=== PATIENT | male | born 1995 | race Caucasian/White ===

== ENCOUNTER 2020-09-04 16:46 | Emergency (ER) | payer OTHER, SELFPAY ==
[2020-09-04 17:09] VITALS: BP 134/65; PULSE 75; RESP 16; TEMP 36.3; O2SAT 95; BMI 22.6
[2020-09-04] MEDS: ondansetron HCL 4 MG/2 ML VIAL IVPUSH (18:10)
[2020-09-04 20:00] VITALS: PULSE 15
--- NOTE | 2020-09-04 20:57 | ED_ITS ---
HPI - Overdose General Chief Complaint: Overdose Stated Complaint: od Time Seen by Provider: 09/04/20 17:44 Source: patient Mode of arrival: ambulatory Limitations: no limitations History of Present Illness HPI Narrative: Patient presents via EMS from home with complaint of accidental heroin overdose. Patient reports that he thought he was doing cocaine but accidentally did heroin which she predicts that the cocaine may have been laced. He denies any intentional plan to harm himself denies any suicidal homicidal ideation. He was given 4 mg of nasal Narcan as he was having minimal responsiveness. Upon arrival nontoxic appearing. He otherwise denies any other medical complaints. complaint: accidental overdose Timing confirmed by: family member Treatments Prior to Arrival: narcan Related Data Allergies Allergy/AdvReac Type Severity Reaction Status Date / Time No Known Allergies Allergy Unverified 07/13/20 16:27 Review of Systems Review of Systems: Constitutional: No Weight loss, No Fever, No Chills, No Night Sweats, No Fatigue, No Malaise ENT/Mouth: No Hearing loss, No Ear Pain, No Nasal Congestion, No Sinus Pain, No Hoarseness, No sore throat, No Rhinorrhea, No Swallowing Difficulty Eyes: No Eye Pain, No Swelling, No Redness, No Foreign Body, No Discharge, No Vision Changes Cardiovascular: No Chest Pain, No SOB, No Dyspnea on Exertion, No Orthopnea, No Edema, No Palpitations Respiratory: No Cough, No Sputum, No Wheezing, No Smoke Exposure, No Dyspnea Gastrointestinal: No Nausea, No Vomiting, No Diarrhea, No Constipation, No abdominal Pain, No Hematochezia, No Melena Genitourinary: no irregular bleeding, No Dysuria, No Urinary Frequency, No Hematuria, No Urinary Incontinence, No Urgency, No Flank Pain, No Urinary Flow Changes, No Hesitancy Musculoskeletal: No joint pain, No Myalgias, No Joint Swelling Skin: No Skin Lesions, No rash Neuro: No Weakness, No Numbness, No Paresthesias, No Loss of Consciousness, No Dizziness, No Headache Psych: No Anxiety/Panic, No Depression, No SI/HI/AH/VH, No Social Issues Heme/Lymph: No Bruising, No Bleeding,No Lymphadenopathy Endocrine: No Polyuria, No Polydipsia, No Temperature Intolerance Yes all other systems are reviewed and are negative [facility] Social History Social History Alcohol intake: unknown Smoking Status: Unknown if ever smoked Use of substances other than those prescribed or required for medical reasons: Yes Substance Use Type: Crack/Cocaine Advance Directives: No Advance Directives Information Provided: No Physical Exam Vital Signs: Vital Signs: Last Vital Signs Temp 97.4 F 09/04/20 17:09 Pulse 15 L 09/04/20 20:00 Resp 16 09/04/20 17:09 BP 134/65 09/04/20 17:09 Pulse Ox 95 09/04/20 17:09 Body Mass Index 22.6 Reviewed Const: General: cooperative and healthy appearing; No acute distress or intoxicated appearing Nutritional Appearance: average body habitus Orientation/consciousness: patient oriented x3 HENMT: Head: Yes normal to inspection Ears: hearing grossly normal bilaterally Eyes: General: appearance normal, both eyes and all related structures Visual Hutton: normal visual hutton by confrontation Neck: Neck: Yes normal visual inspection and No tender Thyroid: Thyroid normal Chest: Chest palpation & inspection: normal inspection of the chest Resp: Effort & Inspection: normal respiratory effort Cardio: Jugular venous distension: no JVD GI: Inspection: Yes normal to inspection Percussion: Yes normal to percussion Auscultation: normal bowel sounds : General: Yes no CVA tenderness Back/Spine/Pelvis: Back: no CVA tenderness Skin: General skin exam: no rashes or lesions noted Neuro: General: patient oriented x3 Extrem: General: Yes normal to inspection Course Course Course Narrative: Patient resting comfortably. Observe in the ED for multiple hours- has remained nontoxic. Detox services offered which he declined. Referred to his primary care doctor and Suboxone program. Denies any SI or HI. Stable for discharge. Discharge Plan Discharge Clinical Impression: Drug overdose Qualifiers: Encounter type: initial encounter Patient Disposition: Home, Self-Care Instructions: Polysubstance Abuse (ED), Adult Overdose (ED) Referrals: Physician,Unknown [Primary Care Provider] - 2 days (Primary care/detox center )
== END 2020-09-04 21:07 | disposition home or self-care (01) ==
PROVIDERS: Emergency Provider Emergency Medicine
DX: T40.1X1A Poisoning by heroin, accidental (unintentional), initial encounter (principal); F11.10 Opioid abuse, uncomplicated; F14.10 Cocaine abuse, uncomplicated; Y92.9 Unspecified place or not applicable; Z71.51 Drug abuse counseling and surveillance of drug abuser
CPT/HCPCS: 96374; 99284; 99285; J2405

== ENCOUNTER 2021-03-22 05:39 | Emergency (ER) | payer OTHER, SELFPAY ==
[2021-03-22 05:54] VITALS: BP 123/59; PULSE 65; RESP 16; TEMP 36.8; O2SAT 99; BMI 19.8
[2021-03-22] MEDS: 0.9 % Sodium Chloride 1,000 ML 999 ML IV (06:17)
[2021-03-22] MEDS: ondansetron HCL 4 MG/2 ML VIAL IVPUSH (06:17)
[2021-03-22 06:21] LABS: Basophils Absolute Auto 0.1 X10*3/uL (0.0-0.2); Basophils Percent Auto 0.2 % (0-2); Hematocrit 43.9 % (42-52); Imm Gran Abs Auto 0.41 X10*3/uL (0.00-0.03); Imm Gran Pct Auto 1.6 % (0.0-0.4); Lymphocytes Absolute Auto 1.4 X10*3/uL (1.2-4.9); Lymphocytes Percent Auto 5.3 % (20-40); MANUAL DIFF FLAG SCAN; Mean Corpuscular HGB Conc 34.2 g/dl (31.0-36.0); Mean Corpuscular Hemoglobin 30.3 pg (27.0-33.0); Mean Corpuscular Volume 88.7 fL (80-98); Mean Platelet Volume 8.8 fL (9.4-12.4); Monocytes Percent Auto 7.7 % (2-11); Neutrophils Absolute Auto 22.3 X10*3/uL (2.0-8.3); Neutrophils Percent Auto 85.2 % (45-73); Platelet Count 272 X10*3/uL (160-400); Red Blood Count 4.95 X10*6/uL (4.60-5.80); Red Cell Distribution Width 12.7 % (11.0-16.0); SCAN SMEAR FLAG 1; White Blood Count 26.1 X10*3/uL (4.8-10.8)
--- NOTE | 2021-03-22 06:32 | ED_ITS ---
HPI - Nausea/Vomiting/Diarrhea General Chief complaint: Nausea/Vomiting/Diarrhea Stated complaint: Vomiting Time Seen by Provider: 03/22/21 06:31 Source: patient Mode of arrival: ambulatory Limitations: no limitations History of Present Illness MD elicited complaint: nausea, vomiting and abdominal pain Pertinent past history: alcohol abuse Onset (ago): hour(s) (1am) Associated nausea: Yes Associated abdominal pain: No Location of pain: none Pain consistency: constant Severity: mild Exacerbating factors: none Relieving factors: none Context: alcohol abuse Associated symptoms: malaise, nausea/vomiting and anxiety Related Data Previous Rx's Medication Instructions Recorded famotidine [Pepcid] 20 mg PO DAILY PRN #30 tab 03/22/21 ondansetron 4 mg PO Q8H PRN #20 tab 03/22/21 Allergies Allergy/AdvReac Type Severity Reaction Status Date / Time No Known Allergies Allergy Verified 03/22/21 05:56 Review of Systems Review of Systems: Constitutional : No Weight loss, No Fever, No Chills ENT/Mouth : No sore throat, No Rhinorrhea Eyes: No Swelling, No Redness Cardiovascular : No Chest Pain, No SOB, NoEdema Respiratory : No Cough, No Sputum, No Wheezing Gastrointestinal : Positive Nausea, Positive Vomiting, no Diarrhea, no abdominal Pain, No Hematochezia, No Melena Genitourinary : No Dysuria, No Urinary Frequency, No Hematuria, No Urgency Musculoskeletal : No joint pain, No Myalgias, No Joint Swelling Skin : No Skin Lesions, No rash Neuro : No Weakness, No Numbness, No Dizziness, No Headache Psych : No Anxiety/Panic, No Depression Heme/Lymph: No Bruising, No Lymphadenopathy Endocrine : No Polyuria, No Polydipsia All other systems reviewed and are negative. Gastrointestinal: Gastrointestinal: Reports nausea PMFSH Past Medical History Attestation statement: The following information was validated with the patient. Medical History No known health problems Surgical History No pertinent past surgical history Social History Social History Alcohol intake: unknown Substance Use Type: Crack/Cocaine Advance Directives: No Advance Directives Information Provided: No Physical Exam Vital Signs: Vital Signs: Last Vital Signs Temp 98.2 F 03/22/21 05:54 Pulse 83 03/22/21 07:02 Resp 18 03/22/21 07:02 BP 126/71 03/22/21 07:02 Pulse Ox 100 03/22/21 07:02 Body Mass Index 19.8 Appearance: Alert. Oriented X3. No acute distress. Eyes: Pupils equal, round and reactive to light. ENT: Pharynx normal. Neck: Normal inspection. Neck supple. CVS: Normal heart rate and rhythm. Pulses normal. Respiratory: No respiratory distress. Breath sounds normal. Abdomen: Soft and nontender. Skin: Skin warm and dry. Normal skin color. Normal skin turgor. Extremities: No lower extremity edema. No calf ttp Neuro: Oriented X 3. No motor deficit. No sensory deficit. Course Course Course Narrative: WBC due to emesis has no abdominal pain on palpation tolerting PO feels much better MDM - Nausea/Vomiting/Diarrhea MDM Narrative Medical decision making narrative: 25 yo male with ETOH use last night c/o vomiting since 1am, given zofran prior to interview states his symptoms have resolved, labs, IVF, PO challenge, abdomen is soft and benign Lab Data Result diagrams: 03/22/21 06:15 03/22/21 06:40 Labs: Lab Results 03/22/21 03/22/21 Range/Units 06:15 06:40 WBC 26.1 H (4.8-10.8) X10*3/uL RBC 4.95 (4.60-5.80) X10*6/uL Hgb 15.0 (14.0-18.0) g/dl Hct 43.9 (42-52) % MCV 88.7 (80-98) fL MCH 30.3 (27.0-33.0) pg MCHC 34.2 (31.0-36.0) g/dl RDW 12.7 (11.0-16.0) % Plt Count 272 (160-400) X10*3/uL MPV 8.8 L (9.4-12.4) fL Immature Gran % (Auto) 1.6 H (0.0-0.4) % Neut % (Auto) 85.2 H (45-73) % Lymph % (Auto) 5.3 L (20-40) % [place] % (Auto) 7.7 (2-11) % Eos % (Auto) 0.0 (0-4) % Baso % (Auto) 0.2 (0-2) % Lymph # (Auto) 1.4 (1.2-4.9) X10*3/uL [place] # (Auto) 2.0 H (0.1-1.2) X10*3/uL Eos # (Auto) 0.0 (0.0-0.4) X10*3/uL Baso # (Auto) 0.1 (0.0-0.2) X10*3/uL Abs Immat Gran (auto) 0.41 H (0.00-0.03) X10*3/uL Absolute Neuts (auto) 22.3 H (2.0-8.3) X10*3/uL Absolute Nucleated RBC 0.000 (0.0-0.012) X10*3/uL Nucleated RBC % (auto) 0.0 (0.0-0.2) /100WBC Smear Tech's Comments VERIFIED Sodium 144 (135-145) mmol/L Potassium 3.8 (3.3-5.1) mmol/L Chloride 109 H (96-108) mmol/L Carbon Dioxide 19 L (22-29) mmol/L Anion Gap 20 (12-20) BUN 16 (9-16) mg/dL Creatinine 0.97 (0.5-1.4) mg/dL Estim Creat Clear Calc 110.0 Estimated GFR > 60 Random Glucose 74 (60-115) mg/dL Calcium 9.1 (8.4-10.2) mg/dL Total Bilirubin 0.9 (0.0-1.0) mg/dL Direct Bilirubin 0.4 (0.0-0.5) mg/dL AST 27 (5-37) U/L ALT 30 (0-40) U/L Alkaline Phosphatase 57 (39-117) U/L Total Protein 7.5 (6.5-8.0) g/dL Albumin 4.7 (3.5-5.0) g/dL Lipase 11 (8-78) U/L Discharge Plan Discharge Clinical Impression: Gastritis Qualifiers: Gastritis type: alcoholic Chronicity: acute Gastritis bleeding: without bleeding Qualified Code(s): K29.20 - Alcoholic gastritis without bleeding Vomiting Qualifiers: Vomiting type: unspecified Vomiting Intractability: non-intractable Nausea presence: with nausea Qualified Code(s): R11.2 - Nausea with vomiting, unspecified Patient Disposition: Home, Self-Care Instructions: Gastritis (ED), Acute Nausea and Vomiting (ED) Additional Instructions: return to ED for any worsening symptoms or concerns stop drinking alcohol Prescriptions: New famotidine [Pepcid] 20 mg tablet 20 mg PO DAILY PRN (Reason: abdominal discomfort) Qty: 30 RF: 0 ondansetron 4 mg tablet,disintegrating 4 mg PO Q8H PRN (Reason: nausea and vomiting) Qty: 20 RF: 0 Stand Alone Forms: Work/School Release
[2021-03-22 07:02] VITALS: BP 126/71; PULSE 83; RESP 18; O2SAT 100
[2021-03-22 07:04] LABS: SLIDE REVIEW VERIFIED
--- NOTE | 2021-03-22 07:10 | PC.NURSE ---
report received from Юлия AMBRIZ. vitals taken. pt resting in bed comfortably, drank small a small sip of water. waiting lab results and IV fluids to finish. no vomiting or abd. pain at this time
[2021-03-22 07:20] LABS: Alanine Aminotransferase 30 U/L (0-40); Albumin Level 4.7 g/dL (3.5-5.0); Alkaline Phosphatase 57 U/L (39-117); Anion Gap 20 (12-20); Aspartate Amino Transferase 27 U/L (5-37); Bilirubin Direct 0.4 mg/dL (0.0-0.5); Bilirubin Total 0.9 mg/dL (0.0-1.0); Blood Urea Nitrogen 16 mg/dL (9-16); Calcium 9.1 mg/dL (8.4-10.2); Carbon Dioxide 19 mmol/L (22-29); Chloride 109 mmol/L (96-108); Estimated Glomerular Filt Rate > 60; Glucose Random 74 mg/dL (60-115); Lipase 11 U/L (8-78); Potassium 3.8 mmol/L (3.3-5.1); Sodium 144 mmol/L (135-145); Total Protein 7.5 g/dL (6.5-8.0)
== END 2021-03-22 08:00 | disposition home or self-care (01) ==
PROVIDERS: Emergency Provider Emergency Medicine
DX: R11.2 Nausea with vomiting, unspecified (principal); R19.7 Diarrhea, unspecified; Z79.899 Other long term (current) drug therapy
CPT/HCPCS: 36415; 80048; 80076; 83690; 85025; 96365; 96375; 99284; J2405

== ENCOUNTER 2024-10-04 22:47 | Emergency (ER) | payer OTHER, SELFPAY ==
[2024-10-04 23:17] VITALS: BP 118/61; PULSE 97; RESP 16; TEMP 36.9; O2SAT 99; BMI 23.4
[2024-10-05 00:29] LABS: Basophils Percent Auto 0.3 % (0-2); Eosinophils Absolute Auto 0.2 X10*3/uL (0.0-0.4); Eosinophils Percent Auto 1.1 % (0-4); Hematocrit 44.1 % (42.0-52.0); Hemoglobin 14.7 g/dl (14.0-18.0); Imm Gran Abs Auto 0.17 X10*3/uL (0.00-0.03); Imm Gran Pct Auto 1.2 % (0.0-0.4); Lymphocytes Absolute Auto 0.4 X10*3/uL (1.2-4.9); Lymphocytes Percent Auto 2.8 % (20-40); MANUAL DIFF FLAG SCAN; Mean Corpuscular HGB Conc 33.3 g/dl (31.0-36.0); Mean Corpuscular Hemoglobin 29.7 pg (27.0-33.0); Mean Corpuscular Volume 89.1 fL (80.0-98.0); Mean Platelet Volume 8.6 fL (9.4-12.4); Monocytes Absolute Auto 1.6 X10*3/uL (0.1-1.2); Monocytes Percent Auto 11.3 % (2-11); Neutrophils Absolute Auto 11.9 x10*3/uL (2.0-8.3); Neutrophils Percent Auto 83.3 % (45-73); Platelet Count 238 X10*3/uL (160-400); Red Blood Count 4.95 X10*6/uL (4.60-5.80); Red Cell Distribution Width 13.4 % (11.0-16.0); SCAN SMEAR FLAG 1; White Blood Count 14.3 X10*3/uL (4.8-10.8)
[2024-10-05 00:45] LABS: Alanine Aminotransferase 51 U/L (0-40); Albumin Level 4.9 g/dL (3.5-5.0); Alkaline Phosphatase 56 U/L (39-117); Anion Gap 12 (12-20); Aspartate Amino Transferase 37 U/L (5-37); Bilirubin Total 0.8 mg/dL (0.0-1.0); Blood Urea Nitrogen 7 mg/dL (9-16); Calcium 9.8 mg/dL (8.4-10.2); Carbon Dioxide 25 mmol/L (22-29); Chloride 105 mmol/L (96-108); Creatinine Clr Calc Pharmacy 105.5; Estimated Glomerular Filt Rate > 60; Glucose Random 96 mg/dL (60-115); Potassium 3.9 mmol/L (3.3-5.1); Sodium 138 mmol/L (135-145); Total Protein 8.2 g/dL (6.5-8.0)
[2024-10-05 00:46] LABS: SLIDE REVIEW VERIFIED
[2024-10-05 02:35] VITALS: BP 140/68; PULSE 78; RESP 16; TEMP 37.3; O2SAT 98
[2024-10-05 02:48] LABS: Appearance Urine Cloudy; Color Urine Yellow; Glucose Urine UA Negative (Negative); Leukocyte Esterase Urine Negative (Negative); Nitrite Urine Negative (Negative); PH 5.5 (5.0-9.0); UMIC TRIGGER UACC YES; Urine Blood Small (1+) (Negative); Urine Ketones 40 mg/dL (Negative); Urine Protein Negative (Neg-Trace)
[2024-10-05 03:10] LABS: Bacteria Urine None Seen (None Seen); Hyaline Casts Urine 0-2 /LPF (0-2); Squamous Epithelial Cell Urine 0-2 /HPF (0-2); WBC Urine 0-5 /HPF (0-5)
--- NOTE | 2024-10-05 03:29 | ED.GENADULT ---
HPI - General Adult General Chief complaint: Back Pain/Injury Stated complaint: Can't sleep Time Seen by Provider: 10/05/24 03:28 History of Present Illness ED Provider: John SHANNON narrative: The patient is a 29-year-old male who says that he has a history of scoliosis of his lower back. He also says he has a history of headaches. The patient says that tonight at around 18:00 he was doing nothing in particular when he started to experience back pain. The pain is similar to previous episodes of back pain that he has had in the past and which he attributes to his diagnosis of scoliosis. He says he could not sleep because of the pain and he also developed a migraine headache which is similar to previous headaches. Related Data Previous Rx's ?Medication ?Instructions ?Recorded famotidine 20 mg tablet (Pepcid) 20 mg PO DAILY PRN abdominal 03/22/21 discomfort #30 tabs ondansetron 4 mg disintegrating 4 mg PO Q8H PRN nausea and 03/22/21 tablet vomiting #20 tabs cyclobenzaprine 10 mg tablet 10 mg PO TID PRN muscle spasm #14 10/05/24 tabs ibuprofen 400 mg tablet 400 mg PO Q6H PRN pain #14 tabs 10/05/24 Allergies Allergy/AdvReac Type Severity Reaction Status Date / Time No Known Allergies Allergy Verified 10/04/24 23:19 Review of Systems Review of Systems: Yes all other systems are reviewed and are negative [facility] Past Medical History Medical History No known health problems Surgical History No pertinent past surgical history Social History Social History Alcohol intake: unknown Smoked in Last 30 Days: No Substance Use Type: Marijuana Advance Directives: No Advance Directives Information Provided: Yes Do you have a plan to hurt others: No Plan Physical Exam ED Vital Signs: Vital Signs - 24 hr 10/04/24 23:17 10/05/24 02:35 Temperature 98.4 F 99.2 F Pulse Rate 97 78 Respiratory Rate 16 16 Blood Pressure 118/61 140/68 H Pulse Oximetry 99 98 Oxygen Delivery Method Room Air Room Air BMI result Body Mass Index 23.4 Const Other: The patient is a slim 29-year-old male who was resting, possibly sleeping. He came to easily with gentle verbal stimulation. He moved around easily. He did not appear in any distress although he complained of pain. HENMT Other: Face is symmetrical. Mucous membranes moist. Eyes Other: Pupils are round equal, conjunctivae are clear, extraocular movements are intact. Neck Other: Moving his neck normally. Resp Effort & Inspection: normal respiratory effort Auscultation: clear to auscultation bilaterally Cardio Rate: regular rate Rhythm: regular rhythm Heart sounds: S1 normal heart sound present and S2 normal heart sound present GI Other: Abdomen is soft nontender Back/Spine/Pelvis Other: some diffuse tenderness to the lumbar spine area and the paraspinous muscles. No deformity or step-off. No redness or skin changes. Skin Other: Skin is dry and unremarkable Neuro Other: the patient was awake and alert. He had a normal mental status. He moves his extremities easily and normally. He has 2+ reflexes at the knees and ankles. Toes go down bilaterally. He seems to have intact strength and sensation in the lower extremities with a normal gait. Extrem Other: He has good range of motion of the hips, knees, and feet. No peripheral edema. Medications Administered Discontinued Medications Generic Name Dose Route Start Last Admin Trade Name Umbertoq PRN Reason Stop Dose Admin Acetaminophen 975 mg 10/05/24 03:37 10/05/24 04:00 Acetaminophen 325 Mg Tablet PO 10/05/24 03:38 975 mg ONCE ONE Administration Ketorolac Tromethamine 30 mg 10/05/24 03:37 10/05/24 03:59 Ketorolac Tromethamine 30 Mg/Ml Vial IM 10/05/24 03:38 30 mg ONCE ONE Administration Medical Decision Making Medical Decision Making [facility] Narrative: The patient is a 29-year-old male. He presents with a complaint of low back pain. He he states that he has a history of scoliosis and has frequent pain that he attributes to his scoliosis. He is also stating that he developed a migraine headache while waiting in the emergency room. He does not appear acutely ill. He has no neurological deficits. The patient will be treated with an IM injection of ketorolac and oral dose of acetaminophen in the emergency department. He will be discharged with instructions to use acetaminophen as well as prescriptions for ibuprofen and cyclobenzaprine. Lab Data 10/05/24 00:18 10/05/24 00:18 Labs: Lab Results 10/05/24 10/05/24 Range/Units 00:18 02:39 WBC 14.3 H (4.8-10.8) X10*3/uL RBC 4.95 (4.60-5.80) X10*6/uL Hgb 14.7 (14.0-18.0) g/dl Hct 44.1 (42.0-52.0) % MCV 89.1 (80.0-98.0) fL MCH 29.7 (27.0-33.0) pg MCHC 33.3 (31.0-36.0) g/dl RDW 13.4 (11.0-16.0) % Plt Count 238 (160-400) X10*3/uL MPV 8.6 L (9.4-12.4) fL Immature Gran % (Auto) 1.2 H (0.0-0.4) % Neut % (Auto) 83.3 H (45-73) % Lymph % (Auto) 2.8 L (20-40) % [place] % (Auto) 11.3 H (2-11) % Eos % (Auto) 1.1 (0-4) % Baso % (Auto) 0.3 (0-2) % Lymph # (Auto) 0.4 L (1.2-4.9) X10*3/uL [place] # (Auto) 1.6 H (0.1-1.2) X10*3/uL Eos # (Auto) 0.2 (0.0-0.4) X10*3/uL Baso # (Auto) 0.0 (0.0-0.2) X10*3/uL Abs Immat Gran (auto) 0.17 H (0.00-0.03) X10*3/uL Absolute Neuts (auto) 11.9 H (2.0-8.3) x10*3/uL Absolute Nucleated RBC 0.000 (0.0-0.012) X10*3/uL Nucleated RBC % (auto) 0.0 (0.0-0.2) /100WBC Smear Tech's Comments VERIFIED Sodium 138 (135-145) mmol/L Potassium 3.9 (3.3-5.1) mmol/L Chloride 105 (96-108) mmol/L Carbon Dioxide 25 (22-29) mmol/L Anion Gap 12 (12-20) BUN 7 L (9-16) mg/dL Creatinine 1.08 (0.5-1.4) mg/dL Estim Creat Clear Calc 105.5 Estimated GFR > 60 Random Glucose 96 (60-115) mg/dL Calcium 9.8 D (8.4-10.2) mg/dL Total Bilirubin 0.8 (0.0-1.0) mg/dL AST 37 (5-37) U/L ALT 51 H (0-40) U/L Alkaline Phosphatase 56 (39-117) U/L Total Protein 8.2 H (6.5-8.0) g/dL Albumin 4.9 (3.5-5.0) g/dL Urine Color Yellow Urine Appearance Cloudy Urine pH 5.5 (5.0-9.0) Ur Specific [place] 1.020 (1.005-1.025) Urine Protein Negative (Neg-Trace) mg/dL Urine Glucose (UA) Negative (Negative) mg/dL Urine Ketones 40 (Negative) mg/dL Urine Blood Small (1+) H (Negative) Urine Nitrite Negative (Negative) Ur Leukocyte Esterase Negative (Negative) Urine RBC 6-10 H (0-2) /HPF Urine WBC 0-5 (0-5) /HPF Ur Squamous Epith Cells 0-2 (0-2) /HPF Urine Bacteria None Seen (None Seen) Hyaline Casts 0-2 (0-2) /LPF Discharge Plan Discharge Clinical Impression: Low back pain, Headache Patient Disposition: Home, Self-Care Additional Instructions: For your back pain you may take 2 extra-strength [id number] acetaminophen (Tylenol) up to 3 times per day. I have sent a prescription for ibuprofen that you may use every 6 hours as needed. I have also sent a prescription for a muscle relaxant called cyclobenzaprine which you may use up to 3 times a day as needed for pain. Do not use this medication if you will be driving or engaging in other activities that require you to be alert. This medication can be sedating. Please continue your efforts to get a primary care doctor. Return to the emergency room if worse. Prescriptions: New cyclobenzaprine 10 mg tablet 10 mg PO TID PRN (Reason: muscle spasm) Qty: 14 0RF ibuprofen 400 mg tablet 400 mg PO Q6H PRN (Reason: pain) Qty: 14 0RF No Action famotidine [Pepcid] 20 mg tablet 20 mg PO DAILY PRN (Reason: abdominal discomfort) Qty: 30 0RF ondansetron 4 mg tablet,disintegrating 4 mg PO Q8H PRN (Reason: nausea and vomiting) Qty: 20 0RF Referrals: [facility] [Provider Group] Interventions: ED Discharge Assessment Last Done: 10/05/24 04:13 Discharge Date/Time: 10/05/24 04:15 Print Language: French
[2024-10-05] MEDS: Ketorolac Tromethamine 30 MG/ML VIAL IM (03:59)
[2024-10-05] MEDS: Acetaminophen 325 MG TABLET 975 MG PO (04:00)
--- NOTE | 2024-10-05 04:11 | PC.NURSE ---
this rn assumed care of pt @ 0330. pt noted to be anxious to be discharged. pt medicated according to dec. ambulatory at discharge. verbalized understanding of discharge plan
[2024-10-05 04:13] VITALS: BP 106/51; PULSE 73; RESP 18; TEMP 36.3; O2SAT 97
== END 2024-10-05 04:15 | disposition home or self-care (01) ==
PROVIDERS: Emergency Provider Emergency Medicine
DX: M54.50 Low back pain, unspecified (principal); R51.9 Headache, unspecified; M41.9 Scoliosis, unspecified
CPT/HCPCS: 36415; 80053; 81001; 85025; 96372; 99284; J1885

== ENCOUNTER 2025-02-02 14:27 | Outpatient (AMB) | payer OTHER, SELFPAY ==
[2025-02-02 14:37] VITALS: BP 102/68; PULSE 84; O2SAT 99; BMI 23.5
--- NOTE | 2025-02-02 14:37 | MHC.PC.OV ---
Vital Signs 02/02/25 14:37 Height 5 ft 11 in Weight 168 lb 8 oz BMI 23.5 BP 102/68 Blood Pressure Location Lt brachial Position Sitting Pulse 84 Pulse Source Pulse Oximeter Pulse Oximetry (%) 99 Oxygen Delivery Method Room Air Intake Visit Reasons: establish care Straw Hat Washer Operator Required: No Accompanied by: Self / Same As Patient Allergies No Known Allergies Allergy (Verified 02/06/25 19:39) Medication List - Last Reconciled 02/06/25 by Jorge Alberto Wang MD clonidine HCl 0.1 mg PO BID quetiapine (Seroquel) 25 mg PO BEDTIME Tobacco use date assessed: 02/02/25 Dental Screening Dental Screen Date: 02/02/25 Did you have a dental visit in the last 12 months?: No Did you have a dental problem in the last 6 months where you did not have access to dental care?: No Was dental information given to patient?: No HPI establish care HPI Details Patient comes in today to establish care and to request being started back on his psychiatric medications until he is established with psychiatry States that he just relocated here to [facility] from [place] recently and has not been able to continue on his previous medications (cannot get them refilled) when his Rx ran out a few weeks ago He reports that he has been suffering from depression, anxiety and ADHD and was doing well on his previous Rx, which include Clonidine and Quetiapine but he could not get his Rx refilled here locally until he is established with the appropriate specialists and Rx prescriber Patient states that he feels okay otherwise He denies any headaches or dizziness Denies any chest pains, no shortness of breath No nausea/vomiting, no abdominal pain No change in bowel habits noted [facility] Medical History (Updated 02/06/25 @ 19:50 by Jorge Alberto Wang MD) Smoker Attention deficit hyperactivity disorder (ADHD) Anxiety Depression Surgical History No pertinent past surgical history Family History (Updated 02/06/25 @ 19:45 by Jorge Alberto Wang MD) Other Family history non-contributory Social History Housing: Apartment Alcohol intake: unknown Patient Tobacco Use Status: Current everyday Tobacco user e-Cigarette/Vaping Use: Currently Using Substance Use Type: Marijuana service: No Current occupational status: disabled Current occupational exposures/hazards: No Cognitive needs: No Hearing needs: No Vision needs: No Questionnaire PHQ-9 Over the last 2 weeks, how often have you been bothered by any of the following problems? 1. Little interest or pleasure in doing things: nearly every day 2. Feeling down, depressed, or hopeless: nearly every day 3. Trouble falling or staying asleep, or sleeping too much: nearly every day 4. Feeling tired or having little energy: more than half the days 5. Poor appetite or overeating: several days 6. Feeling bad about yourself - or that you are a failure or have let yourself or your family down: nearly every day 7. Trouble concentrating on things, such as reading the newspaper or watching television: not at all 8. Moving or speaking so slowly that other people could have noticed. Or the opposite - being so fidgety or restless that you have been moving around a lot more than usual: not at all 9. Thoughts that you would be better off or of hurting yourself in some way: not at all Total score: 15 Depression Screening Interpretation: Positive Depression Screening Follow-up: Existing condition, In treatment and Community Mental Health Worker F/U Depression Screening Done: Yes 28068 - PHQ-9 Billing: Yes Source: Developed by Drs. Steven Marinelli, Nisa Lion, Keanu Prince and colleagues, with an educational anastacia from [employer]. Thrive Questionnaire Date Thrive assessed: 02/02/25 I am a: Patient What is your living situation today?: I have a steady place to live Within the past 12 months, did the food you bought not last and you didn't have the money to get more?: Never true Within the past 12 months, did you worry whether your food would run out before you got money to buy more?: Never true Do you have trouble paying for medicines?: No Do you have trouble getting transportation to medical appointments?: No Do you have trouble paying your heating and electricity bill?: No Do you have trouble taking care of your child, family member or friend?: No Do you have trouble with day-to-day activities such as bathing, preparing meals, shopping, managing finances, etc.?: No Are you currently unemployed and looking for a job?: No Are you interested in more education?: No Please select the resources that you would like help with: None Currently or been in a relationship where the following occur: No concerns reported THRIVE Score: 0 AUDIT C Alcohol Use Questionnaire (AUDIT-C) 1. How often do you have a drink containing alcohol?: Monthly or less 2. How many drinks containing alcohol do you have on a typical day when you are drinking?: 1 or 2 3. How often do you have six or more drinks on one occasion?: Never Total Score: 1 Score Reviewed/Action Taken: Yes GAIL-7 AMB Questionnaire GAIL-7 Date GAIL - 7 assessed: 02/02/25 Feeling nervous, anxious, or on edge: 2 = More than half the days Not being able to stop or control worryin = Nearly every day Worrying too much about different things: 3 = Nearly every day Trouble relaxin = Nearly every day Being so restless that it is hard to sit still: 3 = Nearly every day Becoming easily annoyed or irritable: 3 = Nearly every day Feeling afraid as if something awful might happen: 3 = Nearly every day Total GAIL-7 score (0-4 normal; 5-9 mild; 10-14 moderate; 15-21 severe): 20 Source: Developed by Drs. Steven Marinelli, Nisa Lion, Keanu Prince and colleagues, with an educational anastacia from [employer]. Review of Systems Const Denies chills, Denies fatigue, Denies fever(s) and Denies headache(s) ENT Denies dysphagia, Denies dizziness, Denies otalgia, Denies headache(s), Denies neck pain, Denies odynophagia and Denies sore throat Card Denies chest pain, Denies palpitations and Denies dyspnea Resp Denies chest congestion, Denies cough and Denies dyspnea GI Denies abdominal pain, Denies constipation, Denies dysphagia, Denies heartburn, Denies diarrhea, Denies nausea, Denies odynophagia and Denies vomiting Denies difficulty urinating, Denies dysuria, Denies nocturia and Denies urinary frequency Musc Denies back pain and Denies neck pain Skin/Breast Denies rash Neuro Denies dizziness and Denies headache(s) Psych Reports anxiety, Reports depression and Reports difficulty concentrating Endo Denies fatigue and Denies palpitations Physical exam (Primary Care) Vital Signs: Last Vital Signs Pulse 84 02/02/25 14:37 BP 102/68 02/02/25 14:37 Pulse Ox 99 02/02/25 14:37 Oxygen Delivery Method Room Air 02/02/25 14:37 BMI result Body Mass Index 23.5 Tobacco/Smoking Status: Tobacco use Status Tobacco use date assessed 02/02/25 02/02/25 14:48 Patient Tobacco Use Status Current everyday Tobacco 02/02/25 14:48 e-Cigarette/Vaping Use Currently Using 02/02/25 14:48 PHQ-9: PHQ-9 Score PHQ-9: Total score 15 02/02/25 15:10 Depression Screening Interpretation: Positive Depression Screening Follow-up: Existing condition, In treatment and Community Mental Health Worker F/U Thrive Assessment: Date of Thrive Assessment Date Thrive assessed 02/02/25 02/02/25 14:48 Currently or been in a relationship where the following occur: No concerns reported Const General: no acute distress and alert HENMT Ears: TM's normal bilaterally and EAC's normal Throat: Yes posterior oropharynx normal and Yes tonsils normal (no TP congestion) Neck Neck: Yes supple and No lymphadenopathy Thyroid: Thyroid normal Resp Auscultation: clear to auscultation bilaterally, no rales and no wheezes Cardio Rate: regular rate Rhythm: regular rhythm Heart sounds: no murmurs GI Palpation (GI): Soft to palpation and nontender Auscultation: normal bowel sounds General: Yes no CVA tenderness Back/Spine/Pelvis Back: no CVA tenderness Thoracic/Lumbar Spine: No lumbar spinal tenderness Skin Rashes: no rashes Extrem General: Yes no clubbing, cyanosis or edema Coding Level of Care Code New Pt Level 4 (59907) Diagnoses Anxiety F41.9 Episode of recurrent major depressive disorder, unspecified depression episode severity F33.9 Depression Type: major depressive disorder Major depression recurrence: recurrent Active/Remission status: currently active Major depression episode severity: unspecified Attention deficit hyperactivity disorder (ADHD), unspecified ADHD type F90.9 Attention deficit-hyperactivity disorder type: unspecified Marijuana user F12.90 Smoker F17.200 Additional Codes PHQ-9 - 85934 - PHQ-9 Billing: Yes ([id number]) Assessment & Plan Assessment & Plan (1) Anxiety: Code(s): F41.9 - Anxiety disorder, unspecified Category: Medical (2) Depression: Code(s): F32.A - Depression, unspecified Category: Medical Qualifiers: Depression Type: major depressive disorder Major depression recurrence: recurrent Active/Remission status: currently active Major depression episode severity: unspecified Qualified Code(s): F33.9 - Major depressive disorder, recurrent, unspecified (3) Attention deficit hyperactivity disorder (ADHD): Code(s): F90.9 - Attention-deficit hyperactivity disorder, unspecified type Category: Medical Qualifiers: Attention deficit-hyperactivity disorder type: unspecified Qualified Code(s): F90.9 - Attention-deficit hyperactivity disorder, unspecified type (4) Marijuana user: Code(s): F12.90 - Cannabis use, unspecified, uncomplicated Category: Medical (5) Smoker: Code(s): F17.200 - Nicotine dependence, unspecified, uncomplicated Category: Social Hx Plan Will start patient back on his previous meds for now, including Clonidine 0.1 mg BID and Quetiapine 25 mg Q HS Will also refer him to psychiatry here locally to establish care and continuing management of his psychiatric issues, going forward He has been advised to cut back on his use of recreational marijuana (although he indicated that smoking marijuana helps with his symptoms) - he currently is not a certified medical marijuana user; he is also advised to refrain from smoking marijuana BEFORE he comes in for his appointment so as not to affect others around him that are not marijuana-smokers Patient is also counseled on smoking cessation We will have him return in 4 months for his annual physical examination and patient is instructed to get his labs (ordered today) done just before he returns for his annual physical exam in 4 months Orders: Orders Complete Blood Count Auto Diff 4 Months D64.9 - Anemia, unspecified, Z00.00 - Encounter for general adult medical examination without abnormal findings UA CC w/rflx Micro + Cult 4 Months R30.0 - Dysuria, Z00.00 - Encounter for general adult medical examination without abnormal findings Vitamin D 25-OH Total 4 Months E55.9 - Vitamin D deficiency, unspecified, Z00.00 - Encounter for general adult medical examination without abnormal findings Comprehensive Met. Panel 4 Months Z00.00 - Encounter for general adult medical examination without abnormal findings Cholesterol 4 Months Z00.00 - Encounter for general adult medical examination without abnormal findings TSH reflex Free T4 4 Months E78.00 - Pure hypercholesterolemia, unspecified, Z00.00 - Encounter for general adult medical examination without abnormal findings Referrals Psychiatry Referral F32.A - Depression, unspecified Medications: New quetiapine (Seroquel) 25 mg PO BEDTIME 30 tabs 3RF clonidine HCl 0.1 mg PO BID 60 tabs 3RF
--- OUTSIDE RECORDS SUMMARY | 2025-02-02 16:41 | XMS_ITS | Clinical Summary ---
Author Organization [facility] Address [address] [place] [address] Care Team Providers Care Mva Operator Name Role Phone Regi Gamboa MD Primary Care Provider Source Comments PLEASE NOTE, if this patient is a minor, it may be UNLAWFUL to discuss sensitive information that is contained in these records (such as FAMILY PLANNING, MENTAL HEALTH or SUBSTANCE ABUSE) with the minor patient's parent or other person without the patient's specific authorization.[facility] Allergies No known active allergies Medications QUEtiapine (SEROQUEL) 25 mg tabletIndications: Bipolar affective disorder in remission ([facility]),Attentio n deficit hyperactivity disorder (ADHD), unspecified ADHD type Take 1 Tablet by mouth nightly at bedtime 30 Tablet 2 1 Active venlafaxine (EFFEXOR) 37.5 mg tabletIndications: Bipolar affective disorder in remission ([facility]),Attentio n deficit hyperactivity disorder (ADHD), unspecified ADHD type Take 1 tablet by mouth in the morning 30 Tablet 2 1 Active Active Problems Problem Noted Date Diagnosed Date Moderate episode of recurren t major depressive disorder ([facility]) 06/13/2020 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 History of manic episodes, panic attacks History of prolonged hospitalization in middle school after SI Off medication for long time, wrapping up court proceedings for a divorce as of 05/2020 planning to start medication on return to [place]. Assessment & Plan (06/27/2020 5:27 PM EDT): Psychological condition is improving with lifestyle modifications. Plan: Continue current treatment regimen. Referral to psychological counseling. Referral to psychiatry. Psychological condition will be reassessed at the next regular appointment. Assessment & Plan (05/24/2020 5:02 PM EDT): Psychological condition is worsening. Worse mood, no safety concerns. Reports AH but description more like illusions, patient w good insight. Also has trauma history so may be more PTSD. Plan: resume meds. and psych referral. seroquel and effexor, most recently from 2018. Low doses of each, has had issues w SA and appears multiple trials of different meds Will resume these low doses for now. Most importantly for therapy and psychiatric consultation. Psychological condition will be reassessed in 4 weeks. Assessment & Plan (01/06/2017 9:43 AM EDT): Patient psychiatrically stable at this time. Working to schedule visit with and psychiatry at [facility]. Stable off of medication right now but encourage patient to be diligent about establishing care. Assessment & Plan (11/27/2016 11:09 AM EST): [facility] today to establish psych care Await records ADHD (attention deficit hyperactivity disorder) 11/27/2016 Overview (09/07/2018): Per patient, previously on medication, has upcoming appointment with Psych at [facility], will follow-up at next visit. Assessment & Plan (11/27/2016 11:09 AM EST): [facility] today to establish psych care here Await records Routine health maintenance 11/27/2016 Overview (09/07/2018): 08/25/18: flu shot today, plan to continue to establish care at next visit, CPE, [facility] Assessment & Plan (01/06/2017 9:42 AM EDT): Tetanus vaccine >10 years ago. -Tdap today Assessment & Plan (11/27/2016 11:12 AM EST): CPE today -STI screen: GC/CT, HIV, RPR -Flu vax today -Await other vax records -Failed vision, refer to eye care -Passed hearing -See individual problems Immunizations Immunization Administration Dates Next Due DTAP (DAPTACEL),5 PERTUSSIS ANTIGENS ,03/16/1996,03/27/1995,1993,04/26/1994 HEP B, PED/ADOL 07/27/1995,05/27/1995,03/27/1995 Hib (PRP-OMP) 03/16/1996,06/27/1994,04/26/1994 INFLUENZA, SEASONAL, INJECTABLE 08/25/2018,11/27 IPV 04/12/1998, 5,06/27/1994,1993 MENINGOCOCCAL MPSV4 03/09/2008 MMR (MMR II/Priorix) 04/12/1998,03/27/1995 TDAP 01/02/2017,07/28/2006 Family History Medical History Relation Name Comments Depression Mother Amblyopia Neg Blindness Neg Cancer Neg Cataracts Neg Diabetes Neg Fuchs' Dystrophy Neg Glaucoma Neg Hypertension Neg Macular degeneration Neg Retinal detachment Neg Strabismus Neg Stroke Neg Thyroid Disease Neg Relation Name Status Comments Mother Social History Tobacco Use Types Packs/Day Years Used Date Smoking Tobacco: Every Day Cigarettes Smokeless Tobacco: Current Alcohol Use Standard Drinks/Week Comments Yes 0 (1 standard drink = 0.6 oz pur e alcohol) occasional Social Connections Answer Date Recorded Social Connections and Isolation 0 06/20/2019 Financial Resource Strain Answer Date R ecorded Financial Resource Strain 0 2018 Stress Answer Date Recorded Stress 0 06/20/2019 Physical Activity Answer Date Recorded Physical Activity 0 06/20/2019 Food Insecurity Answer Date Recorded Food 0 06/20/2019 Transportation Needs Answer Date Record ed Transportation 0 06/20/2019 Housing Stability Answer Date Recorded Housing 0 06/20/2019 Safety and Environment Answer Date Pedrito rded Safety 0 06/20/2019 Utilities Answer Date Recorded Utilities 0 06/20/2019 Employment Answer Date Recorded Employment 0 06/20/2019 Sex and Gender Information Value Date Recorded Sex Assigned at Male 07/06/2017 1:46 PM PDT Legal Sex Male 8:10 AM PST Gender Identity Male 07/06/2017 1:46 PM PDT Sexual Orientation Straight 07/06/2017 1: 46 PM PDT Last Filed Vital Signs Vital Sign Reading Time Taken Comments Blood Pressure 113/71 09/24/2018 2:50 PM EST Pulse 74 09/24/2018 2:50 PM EST Temperature 36.4 ??C (97.5 ??F) 09/11/2018 2:03 PM ES T Respiratory Rate - - Oxygen Saturation 100% 09/11/2018 2:03 PM EST Inhaled Oxygen Concentration - - Weight 66.1 kg (145 lb 12.8 oz) 09/24/2018 2:50 PM EST Height 178.9 cm (5' 10.43 ) 08/25/2018 1:48 PM E DT Body Mass Index 20.66 08/25/2018 1:48 PM EDT Plan of Treatment Not on file Insurance [place] D[place] [facility] [place] [address] [place] [address] HEALTH PLAN Member Subscriber Plan / Payer (Ef fective 2017-Present) Name:Eric Ovalle Relation to Subscriber:Self Name:Eric Ovalle Payer ID:[id number] Group ID:Not on file Type:Medicaid Address: [address] [address] [place] [address] [facility] Care Teams Mva Operator Relationship Specialty Start Date End Date Regi Gamboa MD [address] [place] [address] PCP - General 04/26/22
--- OUTSIDE RECORDS SUMMARY | 2025-02-02 16:41 | XMS_ITS | Clinical Summary ---
Author Organization [facility] Address [address] [place] [address] Care Team Providers Care Oracle Manufacturing Consultant Name Role Phone Unavailable Primary Care Provider Unavailabl e Encounters Date Type Department Care Team Description 11/29/2024 Telephone [facility] [address] [place] [address] Elias Louise MD New patient appt. from Last 3 Months Social History Tobacco Use Types Packs/Day Years Used Date Smoking Tobacco: Never Assessed Sex and Gender Information Value Date Recorded Sex Assigned at Male 08/26/2022 10:14 AM EDT Legal Sex Male 10:14 AM EDT Gender Identity Male 05/08/2023 9:56 AM EDT Sexual Orientation Straight 05/08/2023 9: 56 AM EDT Plan of Treatment Health Maintenance Due Date Last Done Comments Depression Screening 1993 HIV Screening 1993 SDOH Screening 1993 Alcohol/Substance Use Screening 2005 Tobacco Screening 2005 Family Planning (PISQ) 2008 Hepatitis C Screening 2011 DTaP/Tdap/Td Vaccines (1 - Tdap) 2012 Hepatitis B Vaccines (1 of 3 - 19+ 3-dose series) 2012 COVID-19 Vaccine ( - 2023-2 5 season) 2024 Influenza Vaccine (#1) 2024 Zoster Vaccines (1 of 2) 2043 RSV Patients and Pa tients Aged 60 years or older (1 - 1-dose 75+ series) 2068 HIB Vaccines Aged Out No longer eligi ble based on patient's age to complete this topic HPV Vaccines Aged Out No longer eligi ble based on patient's age to complete this topic Hepatitis A Vaccines Aged Out No long er eligible based on patient's age to complete this topic IPV Vaccines Aged Out No longer eligi ble based on patient's age to complete this topic Meningococcal Vaccine Aged Out No ro charly eligible based on patient's age to complete this topic Pneumococcal Vaccine: Pediat rics (0 to 5 Years) and At-Risk Patients (6 to 49) Years) Aged Out No longer eligible b ased on patient's age to complete this topic RSV under 20 months Aged Out No longe r eligible based on patient's age to complete this topic Rotavirus Vaccines Aged Out No longer eligible based on patient's age to complete this topic Insurance
== END 2025-02-02 15:12 | disposition home or self-care (01) ==
LOC: HO.HMCH 14:27
PROVIDERS: Visit Provider Internal Medicine
DX: F41.9 Anxiety disorder, unspecified (principal); F33.9 Major depressive disorder, recurrent, unspecified; F90.9 Attention-deficit hyperactivity disorder, unspecified type; F12.90 Cannabis use, unspecified, uncomplicated; F17.200 Nicotine dependence, unspecified, uncomplicated

== ENCOUNTER → 2025-02-02 14:27 | Outpatient (BNVA) | payer OTHER, SELFPAY | PROVIDERS: Visit Provider Internal Medicine | DX: F41.9 Anxiety disorder, unspecified (principal); F90.9 Attention-deficit hyperactivity disorder, unspecified type; F33.9 Major depressive disorder, recurrent, unspecified; F12.90 Cannabis use, unspecified, uncomplicated; F17.210 Nicotine dependence, cigarettes, uncomplicated; D64.9 Anemia, unspecified; R30.0 Dysuria; E55.9 Vitamin D deficiency, unspecified; E78.00 Pure hypercholesterolemia, unspecified | CPT/HCPCS: 96127; 99202 ==

== ENCOUNTER 2025-06-13 12:51 | Outpatient (REF) | payer OTHER, SELFPAY ==
[2025-06-13 13:18] LABS: MANUAL DIFF FLAG NO
[2025-06-13 13:24] LABS: Hematocrit 42.8 % (42.0-52.0); Hemoglobin 14.4 g/dl (14.0-18.0); Imm Gran Abs Auto 0.07 X10*3/uL (0.00-0.03); Imm Gran Pct Auto 0.8 % (0.0-0.4); Lymphocytes Absolute Auto 2.1 X10*3/uL (1.2-4.9); Mean Corpuscular HGB Conc 33.6 g/dl (31.0-36.0); Mean Corpuscular Hemoglobin 29.5 pg (27.0-33.0); Mean Corpuscular Volume 87.7 fL (80.0-98.0); NRBC Abs Auto 0.000 X10*3/uL (0.0-0.012); NRBC Pct Auto 0.0 /100WBC (0.0-0.2); Platelet Count 261 X10*3/uL (160-400); Red Blood Count 4.88 X10*6/uL (4.60-5.80); White Blood Count 9.0 X10*3/uL (4.8-10.8)
--- OUTSIDE RECORDS SUMMARY | 2025-06-13 13:44 | XMS_ITS | Clinical Summary ---
Author Organization [facility] Address [address] [place] [address] Care Team Providers Care Debt And Budget Counselor Name Role Phone Regi Gamboa MD Primary Care Provider [phone] Source Comments PLEASE NOTE, if this patient is a minor, it may be UNLAWFUL to discuss sensitive information that is contained in these records (such as FAMILY PLANNING, MENTAL HEALTH or SUBSTANCE ABUSE) with the minor patient's parent or other person without the patient's specific authorization.[facility] Allergies No known active allergies Medications QUEtiapine (SEROQUEL) 25 mg tabletIndications: Bipolar affective disorder in remission ([facility]),Attention deficit hyperactivity disorder (ADHD), unspecified ADHD type Take 1 Tablet by mouth nightly at bedtime 30 Tablet 2 1 Active venlafaxine (EFFEXOR) 37.5 mg tabletIndications: Bipolar affective disorder in remission ([facility]),Attention deficit hyperactivity disorder (ADHD), unspecified ADHD type Take 1 tablet by mouth in the morning 30 Tablet 2 1 Active Active Problems Problem Noted Date Diagnosed Date Moderate episode of recurren t major depressive disorder ([facility]) 06/13/2020 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 History of manic episodes, panic attacks History of prolonged hospitalization in middle school after SI Off medication for long time, wrapping up court proceedings for a divorce as of 05/2020 planning to start medication on return to [place]. Assessment & Plan (06/27/2020 5:27 PM EDT): [...] to schedule visit with and psychiatry at [facility]. Stable off of medication right now but encourage patient to be diligent about establishing care. Assessment & Plan (11/27/2016 11:09 AM EST): [facility] today to establish psych care Await records ADHD (attention deficit hyperactivity disorder) 11/27/2016 Overview (09/07/2018): Per patient, previously on medication, has upcoming appointment with Psych at [facility], will follow-up at next visit. Assessment & Plan (11/27/2016 11:09 AM EST): [facility] today to establish psych care here Await [...] Dates Next Due DTAP (DAPTACEL),5 PERTUSSIS ANTIGENS ,03/16/1996,03/27/1995,06/27,04/26/1994 HEP B, PED/ADOL (TRHDCTN-Q-CQEL/RECOMBIVAX-PEDS) 07/27/1995,05/27/1995,03/27/1995 Hib (PRP-OMP) (PedvaxHIB) 03/16/1996,06/27/1994, 04/26/1994 INFLUENZA, SEASONAL, INJECTABLE 08/25/2018,11/27 IPV (IPOL) 04/12/1998, 5,06/27/1994,04/26 MENINGOCOCCAL MPSV4 03/09/2008 MMR (MMR II/Priorix) 04/12/1998,03/27/1995 [...] 74 09/24/2018 2:50 PM EST Temperature 36.4 C (97.5 F) 09/11/2018 2:03 PM EST Respiratory Rate - - Oxygen Saturation 100% 09/11/2018 2:03 PM EST Inhaled Oxygen Concentration - - Weight 66.1 kg (145 lb 12.8 oz) 09/24/2018 2:50 PM EST Height 178.9 cm (5' 10.43 ) 08/25/2018 1:48 PM E DT Body Mass Index 20.66 08/25/2018 1:48 PM EDT Plan of Treatment Not on file Insurance [place] MEDICA[place] DENTAL [facility] SAFETY NET DENTAL [employer] Member Subscriber Plan / Payer (Ef fective 2017-Present) Name:Eric Ovalle Relation to Subscriber:Self Name:Eric Ovalle Payer ID:[id number] Group ID:Not on file Type:Medicaid Address: [address] [address] [place] [address] [facility] Care Teams Debt And Budget Counselor Relationship Specialty Start Date End Date Regi Gamboa MD [address] [place] [address] PCP - General 04/26/22
--- OUTSIDE RECORDS SUMMARY | 2025-06-13 13:45 | XMS_ITS | Clinical Summary ---
Author Organization [employer] Address [address] [place] [address] Care Team Providers Care Furnace Maintenance Name Role Phone Unavailable Primary Care Provider Unavailabl e Social History Tobacco Use Types Packs/Day Years [...] 1993 HIV Screening 1993 SDOH Screening 1993 Disability Screening 1993 Alcohol/Substance Use Screening 2005 Tobacco Screening 2005 Family Planning (PISQ) 2008 HPV Vaccines (1 - Male 3-dos e series) 2008 Hepatitis C Screening 2011 DTaP/Tdap/Td Vaccines (1 - Tdap) 2012 Hepatitis B Vaccines (1 of 3 - 19+ 3-dose series) 2012 COVID-19 Vaccine (1 - 2023-2 5 season) 2024 Influenza Vaccine (#1) 2025 Zoster Vaccines (1 of 2) 2043 RSV [...] patient's age to complete this topic Meningococcal B Vaccine Aged Out No l onger eligible based on patient's age to complete this topic Meningococcal Vaccine Aged Out No ro charly eligible based on patient's age to complete this topic Pneumococcal Vaccine: Pediat rics (0 to 5 Years) and At-Risk Patients (6 to 49) Years Aged Out No longer eligible b ased on patient's age to complete this topic RSV under 20 months Aged Out No longe r eligible based on patient's age to complete this topic Rotavirus Vaccines Aged Out No longer eligible based on patient's age to complete this topic Insurance [facility] STANDARD
[2025-06-13 13:58] LABS: Alanine Aminotransferase 35 U/L (0-40); Albumin Level 4.9 g/dL (3.5-5.0); Alkaline Phosphatase 62 U/L (39-117); Anion Gap 12 (12-20); Aspartate Amino Transferase 26 U/L (5-37); Blood Urea Nitrogen 11 mg/dL (9-16); Calcium 9.2 mg/dL (8.4-10.2); Carbon Dioxide 26 mmol/L (22-29); Chloride 108 mmol/L (96-108); Cholesterol 187 mg/dL (<200); Estimated Glomerular Filt Rate > 60; Potassium 4.5 mmol/L (3.3-5.1); Sodium 141 mmol/L (135-145); Total Protein 7.5 g/dL (6.5-8.0)
[2025-06-13 14:04] LABS: Appearance Urine Clear; Glucose Urine UA Negative (Negative); PH 6.0 (5.0-9.0); Specific Gravity - Urine 1.025 (1.005-1.025); UMIC TRIGGER UACC YES
[2025-06-13 14:15] LABS: UACC Culture Trigger YES
== END 2025-06-13 12:52 | disposition home or self-care (01) ==
LOC: HO.LAB 12:51
PROVIDERS: PCP Internal Medicine; Visit Provider Internal Medicine
DX: Z00.00 Encounter for general adult medical examination without abnormal findings (principal); E78.00 Pure hypercholesterolemia, unspecified; D64.9 Anemia, unspecified; E55.9 Vitamin D deficiency, unspecified; R30.0 Dysuria
CPT/HCPCS: 36415; 80053; 81001; 81003; 82306; 82465; 84443; 85025; 87086

== ENCOUNTER 2025-06-21 12:58 | Outpatient (AMB) | payer OTHER, SELFPAY ==
[2025-06-21 13:14] VITALS: BP 124/70; PULSE 83; TEMP 36.2; O2SAT 99; BMI 24.6
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
--- OUTSIDE RECORDS SUMMARY | 2025-06-21 13:40 | XMS_ITS | Clinical Summary ---
Author Organization [employer] Address [address] [place] [address] Care Team Providers Care Contact Clerk Name Role Phone Unavailable Primary Care Provider [...] patient's age to complete this topic Insurance [facility] STANDARD
== END 2025-06-21 14:41 | disposition home or self-care (01) ==
PROVIDERS: PCP Internal Medicine; Visit Provider Internal Medicine
DX: Z00.00 Encounter for general adult medical examination without abnormal findings (principal); E55.9 Vitamin D deficiency, unspecified; F90.9 Attention-deficit hyperactivity disorder, unspecified type; F41.9 Anxiety disorder, unspecified; F33.9 Major depressive disorder, recurrent, unspecified; F12.90 Cannabis use, unspecified, uncomplicated; F17.200 Nicotine dependence, unspecified, uncomplicated

== ENCOUNTER → 2025-06-21 12:58 | Outpatient (BNVA) | payer OTHER, SELFPAY | PROVIDERS: PCP Internal Medicine; Visit Provider Internal Medicine | DX: Z00.00 Encounter for general adult medical examination without abnormal findings (principal); E55.9 Vitamin D deficiency, unspecified; F90.9 Attention-deficit hyperactivity disorder, unspecified type; F41.9 Anxiety disorder, unspecified; F33.9 Major depressive disorder, recurrent, unspecified; F12.90 Cannabis use, unspecified, uncomplicated; F17.200 Nicotine dependence, unspecified, uncomplicated | CPT/HCPCS: 96127; 99395 ==

== ENCOUNTER 2025-08-05 15:29 | Outpatient (AMB) | payer OTHER, SELFPAY ==
[2025-08-05 15:31] VITALS: BP 110/78; PULSE 78; O2SAT 98; BMI 24.8
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
== END 2025-08-05 16:10 | disposition home or self-care (01) ==
LOC: HO.HMCH 15:30
PROVIDERS: PCP Internal Medicine; Visit Provider Internal Medicine
DX: E55.9 Vitamin D deficiency, unspecified (principal); H54.7 Unspecified visual loss; F90.9 Attention-deficit hyperactivity disorder, unspecified type; F41.9 Anxiety disorder, unspecified; F33.9 Major depressive disorder, recurrent, unspecified; F12.90 Cannabis use, unspecified, uncomplicated; F17.200 Nicotine dependence, unspecified, uncomplicated

== ENCOUNTER → 2025-08-05 15:29 | Outpatient (BNVA) | payer OTHER, SELFPAY | PROVIDERS: PCP Internal Medicine; Visit Provider Internal Medicine | DX: F41.9 Anxiety disorder, unspecified (principal); E55.9 Vitamin D deficiency, unspecified; H54.7 Unspecified visual loss; F90.9 Attention-deficit hyperactivity disorder, unspecified type; F33.9 Major depressive disorder, recurrent, unspecified; F12.90 Cannabis use, unspecified, uncomplicated; F17.200 Nicotine dependence, unspecified, uncomplicated | CPT/HCPCS: 96127; 99212 ==